=== PATIENT | male | born 1935 | race Caucasian/White ===

== ENCOUNTER 2019-02-09 08:39 | Observation (INO) ==
[2019-02-09] MEDS ORDERED: ASPIRIN 325 MG TABLET PO STA (09:08)
[2019-02-09 09:19] LABS: Basophils # 0.1 10*3/uL (0.0-0.2); Basophils % 1.7 % (0.0-0.8); Eosinophils # 0.4 10*3/uL (0.0-0.87); Eosinophils % 5.2 % (0.00-10.9); Hematocrit 37.6 VOL% (42.0-52.0); Hemoglobin 11.4 GM/DL (14.0-18.0); Immature Granulocytes % 0.5 %; Immature Granulocytes Absolute 0.04 #; Lymphocytes # 1.5 10*3/uL (1.4-4.0); Lymphocytes % 17.2 % (21.2-54.2); Mean Corpuscular HGB Conc 30.3 GM/DL (32-36); Mean Corpuscular Hemoglobin 29 PG (27-34); Mean Corpuscular Volume 94.9 FL (87-102); Mean Platelet Volume 10.2 FL (9.6-12.0); Monocytes % 12.3 % (1.7-12.7); Neutrophils # 5.3 10*3/uL (1.4-7.4); Neutrophils % 63.1 % (38.7-73.9); Platelet Count 225 T/CUMM (130-400); Red Blood Count 3.96 MC/CUMM (3.8-5.5); Red Cell Distribution Width 14.8 % (9.3-17.3); White Blood Count 8.5 T/CUMM (4-12)
[2019-02-09 09:48] LABS: Albumin 2.8 G/DL (3.4-5.0); Bilirubin,Total 0.4 MG/DL (0.2-1.0); Calcium 8.7 MG/DL (8.5-10.1); Osmolality,Calculated 286.3 MOS/KG (273-304); Total Protein 7.8 G/DL (6.4-8.3)
[2019-02-09] MEDS ORDERED: ONDANSETRON 4 MG/2 ML VIAL IV PRN (11:24)
[2019-02-09] MEDS ORDERED: MORPHINE 4 MG/1 ML VIAL IV PRN (11:24)
[2019-02-09] MEDS: PANTOPRAZOLE 40 MG TABLET PO SCH (13:24)
[2019-02-09] MEDS: SODIUM CHLORIDE 0.45% 1,000 ML IV SCH (13:31)
[2019-02-09] MEDS ORDERED: ZALEPLON 5 MG CAPSULE PO PRN (18:17)
[2019-02-09] MEDS: GABAPENTIN 100 MG CAPSULE PO SCH ×2 (18:26→20:40)
[2019-02-09] MEDS: ACETAMINOPHEN 325 MG TABLET PO SCH ×2 (18:26→20:05)
[2019-02-09 19:19] LABS: Troponin I 0.023 NG/ML (0.00-0.045)
[2019-02-09] MEDS: DILTIAZEM CD 240 MG CAPSULE PO SCH (20:39)
[2019-02-09] MEDS: METOPROLOL TARTRATE 25 MG TABLET PO SCH (20:39)
[2019-02-09] MEDS: FLUTICASONE/SALMETEROL 250-50 DISKUS 14 DOSE INH SCH (20:40)
[2019-02-10] MEDS: SODIUM CHLORIDE 0.45% 1,000 ML IV SCH (00:02)
[2019-02-10 05:13] LABS: Basophils # 0.1 10*3/uL (0.0-0.2); Basophils % 1.3 % (0.0-0.8); Eosinophils # 0.5 10*3/uL (0.0-0.87); Eosinophils % 5.7 % (0.00-10.9); Hematocrit 36.7 VOL% (42.0-52.0); Hemoglobin 11.2 GM/DL (14.0-18.0); Immature Granulocytes % 0.5 %; Immature Granulocytes Absolute 0.04 #; Lymphocytes # 2.1 10*3/uL (1.4-4.0); Lymphocytes % 25.8 % (21.2-54.2); Mean Corpuscular HGB Conc 30.5 GM/DL (32-36); Mean Corpuscular Hemoglobin 29 PG (27-34); Mean Corpuscular Volume 94.3 FL (87-102); Mean Platelet Volume 10.7 FL (9.6-12.0); Monocytes % 12.5 % (1.7-12.7); Neutrophils # 4.5 10*3/uL (1.4-7.4); Neutrophils % 54.2 % (38.7-73.9); Platelet Count 215 T/CUMM (130-400); Red Blood Count 3.89 MC/CUMM (3.8-5.5); White Blood Count 8.3 T/CUMM (4-12)
[2019-02-10 05:53] LABS: Calcium 8.7 MG/DL (8.5-10.1); Osmolality,Calculated 281.4 MOS/KG (273-304); Potassium 4.3 MMOL/L (3.5-5.1); Risk Ratio 2.08; Thyroid Stimulating Hormone 2.19 uIU/ml (0.358-3.74); VLDL CHOLESTEROL 12.4 MG/DL
[2019-02-10] MEDS ORDERED: FEXOFENADINE 180 MG TABLET PO SCH (09:00)
[2019-02-10] MEDS ORDERED: RIVAROXABAN 15 MG TABLET PO SCH (09:00)
[2019-02-10] MEDS ORDERED: REGADENOSON 0.4 MG/5 ML SYRINGE IV ONE (09:54)
[2019-02-10] MEDS: METOPROLOL TARTRATE 25 MG TABLET PO SCH (10:08)
[2019-02-10] MEDS: ACETAMINOPHEN 325 MG TABLET PO SCH (10:08)
[2019-02-10] MEDS: DILTIAZEM CD 240 MG CAPSULE PO SCH (10:08)
[2019-02-10] MEDS: GABAPENTIN 100 MG CAPSULE PO SCH ×2 (10:09→14:09)
[2019-02-10] MEDS: PANTOPRAZOLE 40 MG TABLET PO SCH (10:09)
[2019-02-10] MEDS: FLUTICASONE/SALMETEROL 250-50 DISKUS 14 DOSE INH SCH (11:12)
[2019-02-10] MEDS ORDERED: METOPROLOL TARTRATE 25 MG TABLET PO ONE (14:40)
[2019-02-10 16:27] VITALS: BP 116/62
[2019-02-10] MEDS ORDERED: METOPROLOL TARTRATE 25 MG TABLET PO SCH (21:00)
== END 2019-02-10 17:27 | disposition home or self-care (01) ==
LOC: N.EDINP 08:39 → N.ED 08:39 → N.EDINP 12:22 → N.TELEN 12:26
PROVIDERS: ADMIT Internal Medicine; ATTEND Internal Medicine

== ENCOUNTER 2019-02-15 14:05 | Inpatient (IN) ==
[2019-02-15 14:39] LABS: Basophils # 0.1 10*3/uL (0.0-0.2); Basophils % 0.8 % (0.0-0.8); Eosinophils # 0.2 10*3/uL (0.0-0.87); Eosinophils % 2.2 % (0.00-10.9); Hematocrit 31.7 VOL% (42.0-52.0); Immature Granulocytes % 0.5 %; Immature Granulocytes Absolute 0.04 #; Lymphocytes # 1.4 10*3/uL (1.4-4.0); Lymphocytes % 15.6 % (21.2-54.2); Mean Corpuscular HGB Conc 31.5 GM/DL (32-36); Mean Corpuscular Hemoglobin 29 PG (27-34); Mean Corpuscular Volume 92.7 FL (87-102); Mean Platelet Volume 10.5 FL (9.6-12.0); Monocytes % 11.2 % (1.7-12.7); Neutrophils # 6.1 10*3/uL (1.4-7.4); Neutrophils % 69.7 % (38.7-73.9); Platelet Count 229 T/CUMM (130-400); Red Blood Count 3.42 MC/CUMM (3.8-5.5); White Blood Count 8.8 T/CUMM (4-12)
[2019-02-15 14:47] LABS: Partial Thromboplastin Time 30.5 SECS (0-40)
[2019-02-15 16:56] LABS: Troponin I < 0.015 NG/ML (0.00-0.045)
[2019-02-15] MEDS ORDERED: ONDANSETRON 4 MG/2 ML VIAL IV PRN (17:56)
[2019-02-15] MEDS ORDERED: diphenhydrAMINE CAP 25 MG CAPSULE PO PRN (17:56)
[2019-02-15] MEDS ORDERED: ACETAMINOPHEN 325 MG TABLET PO PRN (17:56)
[2019-02-15] MEDS ORDERED: SODIUM CHLORIDE 0.9% 1,000 ML IV PRN (17:56)
[2019-02-15] MEDS ORDERED: PROMETHAZINE 25 MG/1 ML VIAL IM PRN (17:56)
[2019-02-15] MEDS ORDERED: ZALEPLON 5 MG CAPSULE PO PRN (17:56)
[2019-02-15] MEDS ORDERED: DOCUSATE SODIUM 100 MG CAPSULE PO PRN (17:56)
[2019-02-15] MEDS ORDERED: MORPHINE 4 MG/1 ML VIAL IV PRN (17:56)
[2019-02-15] MEDS ORDERED: traZODone 50 MG TABLET PO PRN (17:56)
[2019-02-15] MEDS: FLUTICASONE/SALMETEROL 250-50 DISKUS 14 DOSE INH SCH (21:00)
[2019-02-15] MEDS: DULoxetine 30 MG CAPSULE PO SCH (21:54)
[2019-02-15] MEDS: ZALEPLON 5 MG CAPSULE PO SCH (21:54)
[2019-02-15] MEDS: PANTOPRAZOLE 40 MG TABLET PO SCH (21:56)
[2019-02-15] MEDS: METOPROLOL TARTRATE 25 MG TABLET PO SCH (21:56)
[2019-02-15] MEDS: DILTIAZEM CD 240 MG CAPSULE PO SCH (21:57)
[2019-02-15] MEDS: GABAPENTIN 100 MG CAPSULE PO SCH (22:04)
[2019-02-16 05:05] LABS: Basophils # 0.1 10*3/uL (0.0-0.2); Basophils % 0.9 % (0.0-0.8); Eosinophils # 0.4 10*3/uL (0.0-0.87); Eosinophils % 4.5 % (0.00-10.9); Hemoglobin 8.7 GM/DL (14.0-18.0); Immature Granulocytes % 0.5 %; Immature Granulocytes Absolute 0.04 #; Lymphocytes # 1.9 10*3/uL (1.4-4.0); Lymphocytes % 22.1 % (21.2-54.2); Mean Corpuscular HGB Conc 31.1 GM/DL (32-36); Mean Corpuscular Hemoglobin 28 PG (27-34); Mean Corpuscular Volume 91.5 FL (87-102); Mean Platelet Volume 10.8 FL (9.6-12.0); Monocytes # 1.1 10*3/uL (0.11-0.8); Monocytes % 13.2 % (1.7-12.7); Neutrophils # 5.1 10*3/uL (1.4-7.4); Neutrophils % 58.8 % (38.7-73.9); Platelet Count 216 T/CUMM (130-400); Red Blood Count 3.06 MC/CUMM (3.8-5.5); Red Cell Distribution Width 14.8 % (9.3-17.3); White Blood Count 8.7 T/CUMM (4-12)
[2019-02-16 05:38] LABS: Albumin 2.4 G/DL (3.4-5.0); Bilirubin,Total 0.6 MG/DL (0.2-1.0); Calcium 8.2 MG/DL (8.5-10.1); Osmolality,Calculated 290.3 MOS/KG (273-304); Potassium 4.3 MMOL/L (3.5-5.1); Risk Ratio 1.82; Thyroid Stimulating Hormone 1.12 uIU/ml (0.358-3.74); Total Protein 6.6 G/DL (6.4-8.3); VLDL CHOLESTEROL 10.6 MG/DL
[2019-02-16] MEDS: DILTIAZEM CD 240 MG CAPSULE PO SCH ×2 (08:13→20:19)
[2019-02-16] MEDS: METOPROLOL TARTRATE 25 MG TABLET PO SCH ×2 (08:14→20:19)
[2019-02-16] MEDS: FEXOFENADINE 180 MG TABLET PO SCH (08:56)
[2019-02-16] MEDS: PANTOPRAZOLE 40 MG TABLET PO SCH ×2 (08:57→20:20)
[2019-02-16] MEDS: DULoxetine 30 MG CAPSULE PO SCH ×2 (08:57→20:20)
[2019-02-16] MEDS: OLANZapine 5 MG TABLET PO SCH (08:57)
[2019-02-16] MEDS: GABAPENTIN 100 MG CAPSULE PO SCH (08:57)
[2019-02-16] MEDS: FLUTICASONE/SALMETEROL 250-50 DISKUS 14 DOSE INH SCH ×2 (08:59→20:18)
[2019-02-16] MEDS: MOMETASONE 0.1% CREAM 15 GM TUBE TOP SCH (11:30)
[2019-02-16] MEDS: ZALEPLON 5 MG CAPSULE PO SCH (20:19)
[2019-02-17 04:51] LABS: Basophils # 0.1 10*3/uL (0.0-0.2); Basophils % 1.3 % (0.0-0.8); Eosinophils # 0.6 10*3/uL (0.0-0.87); Eosinophils % 6.6 % (0.00-10.9); Hematocrit 28.6 VOL% (42.0-52.0); Hemoglobin 8.9 GM/DL (14.0-18.0); Immature Granulocytes % 0.6 %; Immature Granulocytes Absolute 0.05 #; Lymphocytes # 2.2 10*3/uL (1.4-4.0); Lymphocytes % 25.1 % (21.2-54.2); Mean Corpuscular HGB Conc 31.1 GM/DL (32-36); Mean Corpuscular Hemoglobin 29 PG (27-34); Mean Corpuscular Volume 92.9 FL (87-102); Mean Platelet Volume 10.7 FL (9.6-12.0); Monocytes # 1.2 10*3/uL (0.11-0.8); Monocytes % 13.6 % (1.7-12.7); Neutrophils # 4.6 10*3/uL (1.4-7.4); Neutrophils % 52.8 % (38.7-73.9); Platelet Count 239 T/CUMM (130-400); Red Blood Count 3.08 MC/CUMM (3.8-5.5); Red Cell Distribution Width 14.7 % (9.3-17.3); White Blood Count 8.7 T/CUMM (4-12)
[2019-02-17 05:06] LABS: Albumin 2.5 G/DL (3.4-5.0); Bilirubin,Total 0.6 MG/DL (0.2-1.0); Calcium 8.3 MG/DL (8.5-10.1); Osmolality,Calculated 287.4 MOS/KG (273-304); Potassium 4.6 MMOL/L (3.5-5.1); Total Protein 6.9 G/DL (6.4-8.3)
[2019-02-17] MEDS ORDERED: LIDOCAINE 1%/EPI INJ 20 ML VIAL ONE (06:31)
[2019-02-17] MEDS: FLUTICASONE/SALMETEROL 250-50 DISKUS 14 DOSE INH SCH ×2 (08:24→22:05)
[2019-02-17] MEDS ORDERED: ONDANSETRON 4 MG/2 ML VIAL ONE (11:12)
[2019-02-17] MEDS ORDERED: PROPOFOL 200 MG/20 ML VIAL IV ONE (11:12)
[2019-02-17] MEDS ORDERED: SEVOFLURANE 1 UNIT/15 MINUTE INH ONE (11:12)
[2019-02-17] MEDS ORDERED: ROCURONIUM 100 MG/10 ML VIAL IV ONE (11:13)
[2019-02-17] MEDS ORDERED: SUCCINYLCHOLINE 200 MG/10 ML VIAL ONE (11:13)
[2019-02-17] MEDS ORDERED: OXYMETAZOLINE 0.05% NASAL SPRAY 15 ML BOTTLE BOTH NARES PRN (12:06)
[2019-02-17] MEDS: DILTIAZEM CD 240 MG CAPSULE PO SCH ×3 (12:24→22:05)
[2019-02-17] MEDS: FEXOFENADINE 180 MG TABLET PO SCH ×2 (12:24→12:38)
[2019-02-17] MEDS: DULoxetine 30 MG CAPSULE PO SCH ×3 (12:24→22:05)
[2019-02-17] MEDS: MOMETASONE 0.1% CREAM 15 GM TUBE TOP SCH (12:24)
[2019-02-17] MEDS: METOPROLOL TARTRATE 25 MG TABLET PO SCH ×3 (12:30→22:05)
[2019-02-17] MEDS: OLANZapine 5 MG TABLET PO SCH ×2 (12:30→12:36)
[2019-02-17] MEDS: PANTOPRAZOLE 40 MG TABLET PO SCH ×3 (12:30→22:05)
[2019-02-17] MEDS ORDERED: SODIUM CHLORIDE 0.65% NASAL SPRAY 45 ML BOTTLE BOTH NARES PRN (13:00)
[2019-02-17] MEDS: SODIUM CHLORIDE 0.65% NASAL SPRAY 45 ML BOTTLE BOTH NARES SCH ×3 (14:20→22:05)
[2019-02-17] MEDS: ZALEPLON 5 MG CAPSULE PO SCH (22:05)
[2019-02-18 05:54] LABS: Basophils # 0.1 10*3/uL (0.0-0.2); Basophils % 1.1 % (0.0-0.8); Eosinophils # 0.6 10*3/uL (0.0-0.87); Hematocrit 30.6 VOL% (42.0-52.0); Hemoglobin 9.5 GM/DL (14.0-18.0); Immature Granulocytes % 0.3 %; Immature Granulocytes Absolute 0.03 #; Lymphocytes # 2.1 10*3/uL (1.4-4.0); Lymphocytes % 23.1 % (21.2-54.2); Mean Corpuscular Hemoglobin 29 PG (27-34); Monocytes # 0.8 10*3/uL (0.11-0.8); Monocytes % 9.2 % (1.7-12.7); Neutrophils # 5.3 10*3/uL (1.4-7.4); Neutrophils % 59.3 % (38.7-73.9); Platelet Count 271 T/CUMM (130-400); Red Blood Count 3.29 MC/CUMM (3.8-5.5); Red Cell Distribution Width 14.7 % (9.3-17.3); White Blood Count 8.9 T/CUMM (4-12)
[2019-02-18 06:13] LABS: Albumin 2.5 G/DL (3.4-5.0); Bilirubin,Total 0.6 MG/DL (0.2-1.0); Calcium 8.4 MG/DL (8.5-10.1); Osmolality,Calculated 287.3 MOS/KG (273-304); Potassium 4.5 MMOL/L (3.5-5.1); Total Protein 6.9 G/DL (6.4-8.3)
[2019-02-18] MEDS: METOPROLOL TARTRATE 25 MG TABLET PO SCH (09:32)
[2019-02-18] MEDS: PANTOPRAZOLE 40 MG TABLET PO SCH (09:33)
[2019-02-18] MEDS: DILTIAZEM CD 240 MG CAPSULE PO SCH (09:33)
[2019-02-18] MEDS: DULoxetine 30 MG CAPSULE PO SCH (09:34)
[2019-02-18] MEDS: FEXOFENADINE 180 MG TABLET PO SCH (09:34)
[2019-02-18] MEDS: OLANZapine 5 MG TABLET PO SCH (09:34)
[2019-02-18] MEDS: SODIUM CHLORIDE 0.65% NASAL SPRAY 45 ML BOTTLE BOTH NARES SCH (09:35)
[2019-02-18 10:03] VITALS: BP 129/67
[2019-02-18] MEDS: FLUTICASONE/SALMETEROL 250-50 DISKUS 14 DOSE INH SCH (10:19)
[2019-02-18] MEDS: MOMETASONE 0.1% CREAM 15 GM TUBE TOP SCH (10:19)
== END 2019-02-18 10:54 | disposition home or self-care (01) | DRG 133 ==
LOC: N.ED 14:05 → N.EDINP 17:56 → N.2E 19:18 → N.ICU 02-17 10:58
PROVIDERS: ADMIT Internal Medicine; ATTEND Internal Medicine

== ENCOUNTER 2019-09-06 19:02 | Inpatient (IN) ==
[2019-09-06] MEDS ORDERED: METOPROLOL TARTRATE 5 MG/5 ML VIAL IV STA (19:38)
[2019-09-06 19:46] LABS: Basophils # 0.1 10*3/uL (0.0-0.2); Basophils % 0.3 % (0.0-0.8); Hemoglobin 12.4 GM/DL (14.0-18.0); Immature Granulocytes % 6.1 %; Immature Granulocytes Absolute 2.23 #; Lymphocytes # 0.9 10*3/uL (1.4-4.0); Lymphocytes % 2.5 % (21.2-54.2); Mean Corpuscular HGB Conc 32.6 GM/DL (32-36); Mean Corpuscular Volume 93.6 FL (87-102); Mean Platelet Volume 11.3 FL (9.6-12.0); Monocytes % 3.4 % (1.7-12.7); Neutrophils % 87.7 % (38.7-73.9); Platelet Count 169 T/CUMM (130-400); Red Blood Count 4.06 MC/CUMM (3.8-5.5); Red Cell Distribution Width 15.3 % (9.3-17.3); White Blood Count 36.6 T/CUMM (4-12)
[2019-09-06 20:00] LABS: INR 1.1; Partial Thromboplastin Time 33.7 SECS (20.8-36.0)
[2019-09-06 20:07] LABS: Alanine Aminotransferase 30 U/L (16-61); Albumin 2.8 G/DL (3.4-5.0); Alkaline Phosphatase 84 U/L (45-117); Aspartate Amino Transferase 35 U/L (0-37); Blood Urea Nitrogen 51 MG/DL (7-18); Estimated Glom Filtration Rate 28 ML/MIN; Glucose 137 MG/DL (74-106); Osmolality,Calculated 290.7 MOS/KG (273-304); Total Protein 7.8 G/DL (6.4-8.3); Troponin I 0.126 NG/ML (0.00-0.045)
[2019-09-06 20:18] LABS: Band Neutrophils 6 % (0-10); Lymphocytes 3 % (20-55); Platelet Estimate Normal; Segmented Neutrophils 89 % (50-85); Total Cells Counted 100
[2019-09-06] MEDS ORDERED: cefTRIAXone 1,000 MG in SODIUM CHLORIDE 0.9% 100 ML IV STA (20:38)
[2019-09-06] MEDS ORDERED: SODIUM CHLORIDE 0.9% 1,000 ML IV STA (20:38)
[2019-09-06] MEDS ORDERED: AZITHROMYCIN INJ 500 MG in SODIUM CHLORIDE 0.9% 250 ML IV STA (20:38)
[2019-09-06] MEDS ORDERED: ACETAMINOPHEN 325 MG TABLET PO PRN (22:25)
[2019-09-06] MEDS ORDERED: ONDANSETRON 4 MG/2 ML VIAL IV PRN (22:25)
[2019-09-06] MEDS ORDERED: INFLUENZA VIRUS VACCINE 0.5 ML SYRINGE IM ONE (23:40)
[2019-09-07 05:54] LABS: Basophils # 0.1 10*3/uL (0.0-0.2); Basophils % 0.3 % (0.0-0.8); Hematocrit 34.8 VOL% (42.0-52.0); Hemoglobin 11.4 GM/DL (14.0-18.0); Immature Granulocytes % 5.7 %; Immature Granulocytes Absolute 1.73 #; Lymphocytes # 1.2 10*3/uL (1.4-4.0); Lymphocytes % 3.9 % (21.2-54.2); Mean Corpuscular HGB Conc 32.8 GM/DL (32-36); Mean Corpuscular Volume 94.1 FL (87-102); Mean Platelet Volume 11.7 FL (9.6-12.0); Monocytes % 3.3 % (1.7-12.7); Neutrophils % 86.8 % (38.7-73.9); Platelet Count 142 T/CUMM (130-400); Red Cell Distribution Width 15.5 % (9.3-17.3); White Blood Count 30.5 T/CUMM (4-12)
[2019-09-07 06:16] LABS: Calcium 8.3 MG/DL (8.5-10.1)
[2019-09-07 06:17] LABS: Albumin 2.3 G/DL (3.4-5.0); Band Neutrophils 4 % (0-10); Bilirubin,Total 0.9 MG/DL (0.2-1.0); Hypochromasia 1+; Lymphocytes 5 % (20-55); Osmolality,Calculated 286.1 MOS/KG (273-304); Platelet Estimate Adequate; Segmented Neutrophils 87 % (50-85); Total Cells Counted 100; Total Protein 6.6 G/DL (6.4-8.3)
[2019-09-07] MEDS: FLUTICASONE/SALMETEROL 250-50 DISKUS 14 DOSE INH SCH ×2 (08:22→21:04)
[2019-09-07] MEDS: METOPROLOL TARTRATE 25 MG TABLET PO SCH ×2 (08:22→21:05)
[2019-09-07] MEDS: DILTIAZEM CD 240 MG CAPSULE PO SCH ×3 (08:22→21:05)
[2019-09-07] MEDS: RIVAROXABAN 15 MG TABLET PO SCH (08:25)
[2019-09-07] MEDS: PANTOPRAZOLE 40 MG TABLET PO SCH (08:25)
[2019-09-07] MEDS: OLANZapine 5 MG TABLET PO SCH (08:25)
[2019-09-07] MEDS: DULoxetine 30 MG CAPSULE PO SCH ×2 (08:25→21:05)
[2019-09-07] MEDS ORDERED: NON-FORMULARY MEDICATION (Omeprazole 40 MG) PO SCH (09:00)
[2019-09-07] MEDS ORDERED: MOMETASONE 0.1% OINT 15 GM TUBE TOP SCH (09:00)
[2019-09-07] MEDS ORDERED: MOMETASONE 0.1% OINT 15 GM TUBE TOP PRN (09:47)
[2019-09-07 13:20] LABS: Apearance,Urine Slightly Hazy (Clear); Bacteria,Urine Occasional /HPF (Few); Bilirubin,Urine Negative (Negative); Blood, Urine Moderate mg/dL (Negative); Glucose,Urine (UA) Negative (Negative); Ketones,Urine Negative (Negative); Mucus,Urine Occasional /LPF (Occasional); Nitrite,Urine Negative (Negative); Protein,Urine 30 MG/DL; RBC,Urine 4 /HPF (0-4); Urine Color Yellow (Yellow); Urine Specific Gravity 1.021 (1.001-1.035); Urine Urobilinogen < 2.0 EU/DL (0.2-1.0); WBC,Urine 1 /HPF (0-6)
[2019-09-07 14:42] LABS: Barbiturates Screen,Urine Negative (Negative); Benzodiazepines Screen,Urine Negative (Negative); Cannabinoid Screen,Urine Negative (Negative); Opiate Screen,Urine Negative (Negative); Phencyclidine Screen,Urine Negative (Negative)
[2019-09-07] MEDS: cefTRIAXone 1,000 MG in SYRINGE 1 EACH IV SCH (21:04)
[2019-09-07] MEDS: AZITHROMYCIN INJ 500 MG in SODIUM CHLORIDE 0.9% 250 ML IV SCH (21:04)
[2019-09-08 08:27] LABS: Basophils # 0.1 10*3/uL (0.0-0.2); Basophils % 0.3 % (0.0-0.8); Eosinophils # 0.1 10*3/uL (0.0-0.87); Eosinophils % 0.5 % (0.00-10.9); Hemoglobin 11.5 GM/DL (14.0-18.0); Immature Granulocytes % 0.4 %; Immature Granulocytes Absolute 0.08 #; Lymphocytes # 1.4 10*3/uL (1.4-4.0); Lymphocytes % 7.4 % (21.2-54.2); Mean Corpuscular HGB Conc 32.9 GM/DL (32-36); Mean Corpuscular Volume 92.3 FL (87-102); Monocytes % 5.4 % (1.7-12.7); Platelet Count 146 T/CUMM (130-400); Red Blood Count 3.79 MC/CUMM (3.8-5.5); Red Cell Distribution Width 15.1 % (9.3-17.3); White Blood Count 19.4 T/CUMM (4-12)
[2019-09-08 08:39] LABS: Calcium 8.7 MG/DL (8.5-10.1); Osmolality,Calculated 292.3 MOS/KG (273-304)
[2019-09-08 08:57] LABS: Band Neutrophils 2 % (0-10); Hypochromasia 1+; Lymphocytes 7 % (20-55); Segmented Neutrophils 88 % (50-85); Total Cells Counted 100
[2019-09-08 08:58] LABS: Microcytosis Slight; Ovalocytes Slight; Platelet Estimate Adequate
[2019-09-08] MEDS: FLUTICASONE/SALMETEROL 250-50 DISKUS 14 DOSE INH SCH ×2 (09:27→21:43)
[2019-09-08] MEDS: RIVAROXABAN 15 MG TABLET PO SCH (09:28)
[2019-09-08] MEDS: DILTIAZEM CD 240 MG CAPSULE PO SCH ×2 (09:28→20:36)
[2019-09-08] MEDS: DULoxetine 30 MG CAPSULE PO SCH ×2 (09:29→20:37)
[2019-09-08] MEDS: METOPROLOL TARTRATE 25 MG TABLET PO SCH ×2 (09:29→20:37)
[2019-09-08] MEDS: OLANZapine 5 MG TABLET PO SCH (09:29)
[2019-09-08] MEDS: PANTOPRAZOLE 40 MG TABLET PO SCH (09:29)
[2019-09-08] MEDS: cefTRIAXone 1,000 MG in SYRINGE 1 EACH IV SCH (20:37)
[2019-09-08] MEDS: AZITHROMYCIN INJ 500 MG in SODIUM CHLORIDE 0.9% 250 ML IV SCH (20:44)
[2019-09-09 05:00] LABS: Basophils # 0.1 10*3/uL (0.0-0.2); Basophils % 0.5 % (0.0-0.8); Eosinophils # 0.3 10*3/uL (0.0-0.87); Eosinophils % 2.7 % (0.00-10.9); Hematocrit 32.7 VOL% (42.0-52.0); Hemoglobin 10.9 GM/DL (14.0-18.0); Immature Granulocytes % 1.1 %; Immature Granulocytes Absolute 0.13 #; Lymphocytes # 1.6 10*3/uL (1.4-4.0); Lymphocytes % 12.5 % (21.2-54.2); Mean Corpuscular HGB Conc 33.3 GM/DL (32-36); Mean Corpuscular Volume 92.6 FL (87-102); Mean Platelet Volume 11.7 FL (9.6-12.0); Monocytes % 8.9 % (1.7-12.7); Neutrophils % 74.3 % (38.7-73.9); Platelet Count 138 T/CUMM (130-400); Red Blood Count 3.53 MC/CUMM (3.8-5.5); Red Cell Distribution Width 15.2 % (9.3-17.3); White Blood Count 12.4 T/CUMM (4-12)
[2019-09-09 05:22] LABS: Calcium 8.3 MG/DL (8.5-10.1); Osmolality,Calculated 287.4 MOS/KG (273-304)
[2019-09-09] MEDS: FLUTICASONE/SALMETEROL 250-50 DISKUS 14 DOSE INH SCH ×2 (09:20→20:41)
[2019-09-09] MEDS: METOPROLOL TARTRATE 25 MG TABLET PO SCH ×2 (09:21→20:40)
[2019-09-09] MEDS: OLANZapine 5 MG TABLET PO SCH (09:21)
[2019-09-09] MEDS: PANTOPRAZOLE 40 MG TABLET PO SCH (09:21)
[2019-09-09] MEDS: DULoxetine 30 MG CAPSULE PO SCH ×2 (09:21→20:40)
[2019-09-09] MEDS: RIVAROXABAN 15 MG TABLET PO SCH (09:21)
[2019-09-09] MEDS: DILTIAZEM CD 240 MG CAPSULE PO SCH ×2 (09:22→20:41)
[2019-09-09] MEDS: cefTRIAXone 1,000 MG in SYRINGE 1 EACH IV SCH (20:41)
[2019-09-09] MEDS: AZITHROMYCIN INJ 500 MG in SODIUM CHLORIDE 0.9% 250 ML IV SCH (20:45)
[2019-09-10 05:05] LABS: Basophils # 0.1 10*3/uL (0.0-0.2); Basophils % 0.8 % (0.0-0.8); Eosinophils # 0.5 10*3/uL (0.0-0.87); Eosinophils % 4.8 % (0.00-10.9); Hematocrit 34.3 VOL% (42.0-52.0); Hemoglobin 11.1 GM/DL (14.0-18.0); Lymphocytes # 1.4 10*3/uL (1.4-4.0); Lymphocytes % 14.1 % (21.2-54.2); Mean Corpuscular HGB Conc 32.4 GM/DL (32-36); Mean Corpuscular Volume 93.2 FL (87-102); Mean Platelet Volume 11.6 FL (9.6-12.0); Monocytes % 10.3 % (1.7-12.7); Platelet Count 164 T/CUMM (130-400); Red Blood Count 3.68 MC/CUMM (3.8-5.5); Red Cell Distribution Width 14.9 % (9.3-17.3)
[2019-09-10 05:37] LABS: Calcium 8.6 MG/DL (8.5-10.1); Osmolality,Calculated 292.7 MOS/KG (273-304)
[2019-09-10] MEDS: FLUTICASONE/SALMETEROL 250-50 DISKUS 14 DOSE INH SCH (09:33)
[2019-09-10] MEDS: DULoxetine 30 MG CAPSULE PO SCH (09:34)
[2019-09-10] MEDS: DILTIAZEM CD 240 MG CAPSULE PO SCH (09:34)
[2019-09-10] MEDS: METOPROLOL TARTRATE 25 MG TABLET PO SCH (09:34)
[2019-09-10] MEDS: OLANZapine 5 MG TABLET PO SCH (09:34)
[2019-09-10] MEDS: PANTOPRAZOLE 40 MG TABLET PO SCH (09:34)
[2019-09-10] MEDS: RIVAROXABAN 15 MG TABLET PO SCH (09:34)
[2019-09-10] MEDS ORDERED: FUROSEMIDE 20 MG/2 ML VIAL IV ONE (10:40)
[2019-09-10 12:07] VITALS: BP 132/65
== END 2019-09-10 15:15 | disposition home or self-care (01) ==
LOC: N.ED 19:02 → N.EDINP 22:25 → N.2E 22:53
PROVIDERS: ADMIT Internal Medicine; ATTEND Internal Medicine

== ENCOUNTER 2020-07-05 12:10 | Inpatient (IN) ==
[2020-07-05] MEDS ORDERED: SODIUM CHLORIDE 0.9% 1,000 ML IV STA (12:36)
[2020-07-05] MEDS ORDERED: ONDANSETRON 4 MG/2 ML VIAL IV STA (12:36)
[2020-07-05 12:54] LABS: Basophils % 0.2 % (0.0-0.8); Hematocrit 33.1 VOL% (42.0-52.0); Hemoglobin 11.1 GM/DL (14.0-18.0); Immature Granulocytes % 1.5 %; Immature Granulocytes Absolute 0.34 #; Lymphocytes # 0.9 10*3/uL (1.4-4.0); Mean Corpuscular HGB Conc 33.5 GM/DL (32-36); Mean Corpuscular Volume 95.4 FL (87-102); Mean Platelet Volume 11.5 FL (9.6-12.0); Monocytes % 5.3 % (1.7-12.7); Platelet Count 188 T/CUMM (130-400); Red Blood Count 3.47 MC/CUMM (3.8-5.5); Red Cell Distribution Width 17.2 % (9.3-17.3); White Blood Count 22.6 T/CUMM (4-12)
[2020-07-05 13:21] LABS: Alanine Aminotransferase 57 U/L (16-61); Albumin 1.4 G/DL (3.4-5.0); Alkaline Phosphatase 831 U/L (45-117); Aspartate Amino Transferase 34 U/L (0-37); Blood Urea Nitrogen 55 MG/DL (7-18); Calcium 8.1 MG/DL (8.5-10.1); Glucose 128 MG/DL (74-106); Total Protein 5.5 G/DL (6.4-8.3)
[2020-07-05 13:23] LABS: Band Neutrophils 9 % (0-10); Lymphocytes 4 % (20-55); Metamyelocytes 1 %; Segmented Neutrophils 81 % (50-85); Total Cells Counted 100
[2020-07-05 13:24] LABS: Platelet Estimate Adequate; Polychromasia Slight; Reactive Lymphocytes Slight; Target Cells Slight
[2020-07-05 13:25] LABS: Estimated Glom Filtration Rate 0 ML/MIN
[2020-07-05 13:46] LABS: Apearance,Urine CLEAR (Clear); Bilirubin,Urine Negative (Negative); Blood, Urine Negative (Negative); Glucose,Urine (UA) Negative (Negative); Hyaline Casts,Urine 13 /LPF (0-3); Ketones,Urine Negative (Negative); Mucus,Urine Occasional /LPF (Occasional); Nitrite,Urine Negative (Negative); Protein,Urine Negative; RBC,Urine 2 /HPF (0-4); Squamous Epithelial Cell,Urine Occasional /HPF (0-10); Urine Color Amber (Yellow); Urine Specific Gravity 1.025 (1.001-1.035); WBC,Urine 2 /HPF (0-6)
[2020-07-05] MEDS ORDERED: cefTRIAXone 1,000 MG in SODIUM CHLORIDE 0.9% 100 ML IV STA (14:00)
[2020-07-05] MEDS ORDERED: SODIUM CHLORIDE 0.9% 500 ML IV STA (15:40)
[2020-07-05] MEDS ORDERED: DEXTROSE 50% 25 GM/50 ML VIAL IV PRN (16:00)
[2020-07-05] MEDS ORDERED: ACETAMINOPHEN 325 MG TABLET PO PRN (16:00)
[2020-07-05] MEDS ORDERED: GLUCAGON 1 MG VIAL IM PRN (16:00)
[2020-07-05] MEDS ORDERED: ONDANSETRON 4 MG/2 ML VIAL IV PRN (16:00)
[2020-07-05] MEDS: SODIUM CHLORIDE 0.9% 1,000 ML IV SCH (17:25)
[2020-07-05] MEDS: PIPERACILLIN/TAZOBACTAM 3,375 MG in SODIUM CHLORIDE 0.9% 100 ML IV SCH (17:50)
[2020-07-05] MEDS: DILTIAZEM CD 240 MG CAPSULE PO SCH (20:25)
[2020-07-05] MEDS: OLANZapine 5 MG TABLET PO SCH (20:25)
[2020-07-05] MEDS: DULoxetine 30 MG CAPSULE PO SCH (20:25)
[2020-07-06] MEDS: SODIUM CHLORIDE 0.9% 1,000 ML IV SCH ×3 (01:35→19:55)
[2020-07-06] MEDS: PIPERACILLIN/TAZOBACTAM 3,375 MG in SODIUM CHLORIDE 0.9% 100 ML IV SCH ×3 (02:44→18:47)
[2020-07-06 06:18] LABS: Basophils % 0.1 % (0.0-0.8); Eosinophils % 0.1 % (0.00-10.9); Hematocrit 31.6 VOL% (42.0-52.0); Immature Granulocytes % 0.8 %; Immature Granulocytes Absolute 0.14 #; Lymphocytes # 0.8 10*3/uL (1.4-4.0); Lymphocytes % 4.6 % (21.2-54.2); Mean Corpuscular HGB Conc 34.8 GM/DL (32-36); Mean Corpuscular Volume 93.5 FL (87-102); Mean Platelet Volume 11.8 FL (9.6-12.0); Monocytes % 5.3 % (1.7-12.7); Neutrophils % 89.1 % (38.7-73.9); Platelet Count 156 T/CUMM (130-400); Red Blood Count 3.38 MC/CUMM (3.8-5.5); Red Cell Distribution Width 17.2 % (9.3-17.3)
[2020-07-06 06:47] LABS: Calcium 7.8 MG/DL (8.5-10.1); Osmolality,Calculated 288.5 MOS/KG (273-304)
[2020-07-06] MEDS: DULoxetine 30 MG CAPSULE PO SCH ×3 (08:05→20:24)
[2020-07-06] MEDS: DILTIAZEM CD 240 MG CAPSULE PO SCH ×2 (08:05→20:24)
[2020-07-06 09:40] LABS: Anisocytosis 2+; Band Neutrophils 33 % (0-10); Eosinophils 1 % (0-10); Lymphocytes 4 % (20-55); Macrocytosis 2+; Metamyelocytes 1 %; Platelet Estimate Normal; Segmented Neutrophils 55 % (50-85); Target Cells Few; Total Cells Counted 100
[2020-07-06 09:41] LABS: Burr Cells Few; Poikilocytosis Slight
[2020-07-06] MEDS ORDERED: HYDROmorphone 2 MG/1 ML VIAL IV PRN (09:52)
[2020-07-06] MEDS: ENOXAPARIN 40 MG/0.4 ML SYRINGE SUBCUT SCH (10:57)
[2020-07-06] MEDS: DIGOXIN 0.25 MG TABLET PO SCH (12:12)
[2020-07-06] MEDS: OLANZapine 5 MG TABLET PO SCH (20:24)
[2020-07-06] MEDS: DEXT 5% NACL 0.45% KCL 20 MEQ 20 MEQ/1,000 ML BAG IV SCH (22:47)
[2020-07-07] MEDS: PIPERACILLIN/TAZOBACTAM 3,375 MG in SODIUM CHLORIDE 0.9% 100 ML IV SCH ×3 (03:04→17:15)
[2020-07-07 07:55] LABS: Basophils % 0.2 % (0.0-0.8); Eosinophils # 0.1 10*3/uL (0.0-0.87); Eosinophils % 1.2 % (0.00-10.9); Hematocrit 31.2 VOL% (42.0-52.0); Hemoglobin 10.5 GM/DL (14.0-18.0); Immature Granulocytes % 0.8 %; Lymphocytes # 0.7 10*3/uL (1.4-4.0); Lymphocytes % 5.4 % (21.2-54.2); Mean Corpuscular HGB Conc 33.7 GM/DL (32-36); Mean Corpuscular Volume 95.4 FL (87-102); Mean Platelet Volume 11.8 FL (9.6-12.0); Monocytes % 5.2 % (1.7-12.7); Neutrophils % 87.2 % (38.7-73.9); Platelet Count 159 T/CUMM (130-400); Red Blood Count 3.27 MC/CUMM (3.8-5.5); White Blood Count 12.2 T/CUMM (4-12)
[2020-07-07 08:05] LABS: Bilirubin,Total 2.7 MG/DL (0.2-1.0); Calcium 7.8 MG/DL (8.5-10.1); Osmolality,Calculated 286.5 MOS/KG (273-304); Total Protein 4.8 G/DL (6.4-8.3)
[2020-07-07 08:19] LABS: Band Neutrophils 2 % (0-10); Lymphocytes 4 % (20-55); Metamyelocytes 2 %; Platelet Estimate Normal; Segmented Neutrophils 88 % (50-85); Total Cells Counted 100
[2020-07-07 08:20] LABS: Anisocytosis 1+; Macrocytosis 1+
[2020-07-07] MEDS: DILTIAZEM CD 120 MG CAPSULE PO SCH ×2 (09:13→21:00)
[2020-07-07] MEDS: DEXT 5% NACL 0.45% KCL 20 MEQ 20 MEQ/1,000 ML BAG IV SCH ×2 (09:14→21:15)
[2020-07-07] MEDS: DULoxetine 30 MG CAPSULE PO SCH ×3 (09:14→21:00)
[2020-07-07 09:34] LABS: INR 1.1; PT Patient Result 12.1 SECS (9.8-11.9); Partial Thromboplastin Time 38.1 SECS (23.9-33.8)
[2020-07-07] MEDS: DIGOXIN 0.25 MG TABLET PO SCH (12:55)
[2020-07-07] MEDS: OLANZapine 5 MG TABLET PO SCH (21:00)
[2020-07-08] MEDS: PIPERACILLIN/TAZOBACTAM 3,375 MG in SODIUM CHLORIDE 0.9% 100 ML IV SCH ×3 (01:25→17:05)
[2020-07-08 07:59] LABS: Basophils # 0.1 10*3/uL (0.0-0.2); Basophils % 0.4 % (0.0-0.8); Eosinophils # 0.2 10*3/uL (0.0-0.87); Eosinophils % 1.9 % (0.00-10.9); Hematocrit 32.2 VOL% (42.0-52.0); Hemoglobin 11.1 GM/DL (14.0-18.0); Immature Granulocytes Absolute 0.24 #; Lymphocytes # 1.1 10*3/uL (1.4-4.0); Lymphocytes % 9.3 % (21.2-54.2); Mean Corpuscular HGB Conc 34.5 GM/DL (32-36); Mean Corpuscular Volume 92.8 FL (87-102); Mean Platelet Volume 11.7 FL (9.6-12.0); Monocytes % 5.6 % (1.7-12.7); Neutrophils % 80.8 % (38.7-73.9); Platelet Count 179 T/CUMM (130-400); Red Blood Count 3.47 MC/CUMM (3.8-5.5); Red Cell Distribution Width 17.1 % (9.3-17.3); White Blood Count 12.1 T/CUMM (4-12)
[2020-07-08 08:39] LABS: Albumin 1.3 G/DL (3.4-5.0); Bilirubin,Total 3.4 MG/DL (0.2-1.0); Calcium 8.2 MG/DL (8.5-10.1); Osmolality,Calculated 289.3 MOS/KG (273-304); Total Protein 5.2 G/DL (6.4-8.3)
[2020-07-08] MEDS: DEXT 5% NACL 0.45% KCL 20 MEQ 20 MEQ/1,000 ML BAG IV SCH ×2 (09:04→22:20)
[2020-07-08] MEDS: DULoxetine 30 MG CAPSULE PO SCH ×3 (09:05→21:49)
[2020-07-08] MEDS: DILTIAZEM CD 120 MG CAPSULE PO SCH ×2 (09:05→21:49)
[2020-07-08] MEDS: ENOXAPARIN 40 MG/0.4 ML SYRINGE SUBCUT SCH (09:06)
[2020-07-08] MEDS: DIGOXIN 0.25 MG TABLET PO SCH (14:31)
[2020-07-08] MEDS: OLANZapine 5 MG TABLET PO SCH (21:49)
[2020-07-09] MEDS: PIPERACILLIN/TAZOBACTAM 3,375 MG in SODIUM CHLORIDE 0.9% 100 ML IV SCH ×2 (02:37→09:09)
[2020-07-09] MEDS: DULoxetine 30 MG CAPSULE PO SCH ×2 (09:10→15:25)
[2020-07-09] MEDS: DILTIAZEM CD 120 MG CAPSULE PO SCH (09:10)
[2020-07-09] MEDS: ENOXAPARIN 40 MG/0.4 ML SYRINGE SUBCUT SCH (09:11)
[2020-07-09 12:16] VITALS: BP 138/65
[2020-07-09] MEDS: DIGOXIN 0.25 MG TABLET PO SCH (15:25)
== END 2020-07-09 15:57 | disposition hospice, home (50) | DRG 444 ==
LOC: N.ED 12:10 → SUATTDRO 16:00 → N.EDINP 16:00 → N.4E 18:06
PROVIDERS: ADMIT Hospitalist; ATTEND Internal Medicine